=== PATIENT | female | born 1995 | race Caucasian/White ===

== ENCOUNTER 2020-02-10 23:57 | Emergency (ER) | payer OTHER ==
[~2020-02-10] VITALS: Ht 162.6 cm; Wt 68.9 kg
[2020-02-11 01:02] LABS: Urine Bacteria NONE SEEN /hpf (None Seen); Urine Blood 3+ /uL (Negative); Urine Mucus FEW (None Seen); Urine WBC 2300 /hpf (0 - 5); Urine WBC Clumps PRESENT /hpf (None Seen)
[2020-02-11] MEDS ORDERED: cefTRIAXone SOD 1,000 MG VL IM ONE (01:30)
[2020-02-11 01:46] VITALS: BP 136/81
== END 2020-02-11 01:49 | disposition home or self-care (01) ==
LOC: ER 02-11
DX: N39.0 Urinary tract infection, site not specified (principal); R35.0 Frequency of micturition
CPT/HCPCS: 81001; 96372; 99283; J0696

== ENCOUNTER 2024-07-08 16:41 | Inpatient (IN) | payer MEDICAID, OTHER ==
[~2024-07-08] VITALS: Ht 162.6 cm; Wt 88.9 kg
[2024-07-08] MEDS ORDERED: NALBUPHINE HCL 10 MG/1ml INJECTION IV PRN (17:00)
[2024-07-08] MEDS ORDERED: LIDOCAINE 2%HCL (LOCAL ANESTH.) INJ 20ML MDV IJ PRN (17:00)
[2024-07-08] MEDS: LACTATED RINGER'S 1,000 ML IV SCH (17:12)
[2024-07-08 17:26] LABS: Basophils # (auto) 0 10 ^3/uL (0-0.2); Basophils % (auto) 0.3 % (0.0-2.0); Eosinophils # (auto) 0 10 ^3/uL (0-0.8); Eosinophils % (auto) 0.4 % (0.0-7.0); Hemoglobin 13.5 g/dL (12.2-16.2); Lymphocytes # (auto) 1.3 10 ^3/uL (0.4-5.4); Lymphocytes % (auto) 14.7 % (10.0-50.0); Mean Corpuscular Hemoglobin 30.4 pg (28.0-32.0); Mean Corpuscular Hgb Conc. 33.8 g/dL (32.0-36.0); Monocytes # (auto) 0.6 10 ^3/uL (0-1.3); Monocytes % (auto) 7.6 % (0.0-12.0); Neutrophils # (auto) 6.5 10 ^3/uL (1.6-8.6); Nucleated Red Blood Cells % 0.1 %; Platelet Count (auto) 115 10^3/uL (140-450); Red Blood Cells 4.45 10^6/uL (4.0-5.20); Red Cell Distribution Width 13.7 % (11.8-14.3); White Blood Cell 8.5 10^3/uL (4.4-10.8)
[2024-07-08 17:42] LABS: INR 1.03 (0.9-1.15); Partial Thromboplastin Time 27.7 SEC (24.5-34.5); Prothrombin Time 10.9 sec (9.3-11.8)
[2024-07-08 17:44] LABS: Alanine Aminotransferase 16 U/L (7-40); Anion Gap 13 (5-15); Aspartate Aminotransferase 28 U/L (13-40); BUN/Creatinine Ratio 9.3 (10.0-20.0); Calcium 9.6 mg/dL (8.7-10.4); Chloride 106 mmol/L (98-107); Glucose 99 mg/dL (74-106); Sodium 138 mmol/L (136-145); Total Protein 6.5 g/dL (5.7-8.2)
[2024-07-08 17:45] LABS: Bilirubin, Total 0.9 mg/dL (0.2-1.0)
[2024-07-08] MEDS: miSOPROStol 50 MCG per PRE-CUT 1/2 TAB PO PRN (18:05)
[2024-07-08 18:24] LABS: Alkaline Phosphatase 151 U/L (46-116); Blood Urea Nitrogen 7 mg/dL (9-23); Carbon Dioxide 19 mmol/L (20-31); Potassium 3.4 mmol/L (3.5-5.1)
[2024-07-08] MEDS: WITCH HAZEL-GLYCERIN PAD TOP PRN (18:31)
[2024-07-08] MEDS: DERMOPLAST 60ML BOTTLE TOP PRN (18:31)
[2024-07-08] MEDS: PHISODERM TOP SOLN 240ML BTL TOP PRN (18:31)
[2024-07-08 18:38] LABS: Urine Bacteria FEW /hpf (None Seen); Urine Blood Negative /uL (Negative); Urine Clarity Turbid (Clear); Urine Color Yellow (Yellow); Urine Mucus FEW (None Seen); Urine Protein, UAD TRACE (Negative); Urine Specific Gravity 1.023 (1.001-1.035); Urine Squamous Epithelial Cell FEW /hpf (<5); Urine Urobilinogen Normal (Negative); Urine WBC 7 /HPF (0-5)
--- NOTE | 2024-07-08 18:40 | DVHHP2 ---
OB CC & HPI Date Date of Admission: Jul 08, 2024 Patient Identification: : 1 Para: 0 EDC: Jul 14, 2024 EGA: 39.1 Chief Complaints: Reason for admission: induction of labor History of Present Complaints 28y G1Po IUP 39.1 wk, admitted for elective labor induction uncomplicated, EFW by US 7lb 5oz GBS neg Past Medical History Cardiac: No pertinent Hx Pulmonary: No pertinent Hx Central Nervous System: No pertinent Hx GI: No pertinent Hx Hemotology/Oncology: No pertinent Hx Hepatobiliary: No pertinent Hx Psychiatric: No pertinent Hx Musculoskeletal: No pertinent Hx Rheumotologic: No pertinent Hx Infectious Disease: No peritnent Hx ENT: No pertinent Hx Renal/: No pertinent Hx Endocrine: No pertinent Hx Dermatology: No pertinent Hx Past Surgical History: No pertinent Hx OB History OB History Care: Good Care Ultrasounds: Normal mid trimester US Obstetrical Complications: None Medical Complications: None Allergies: Coded Allergies: NO KNOWN ALLERGIES (Unverified , 07/08/24) Current Medications Current Medications Medications (Trade) Dose Ordered Sig/Davin Route PRN Reason Start Time Stop Time Status Last Admin Lactated Ringer's 1,000 ml @ 125 mls/hr Q8H IV 07/08/24 17:00 07/08/24 17:12 Nalbuphine HCl (Nubain) 10 mg Q4HP PRN IV MODERATE PAIN (4-6 PAIN SCALE) 07/08/24 17:00 Witch Vianca (Tucks) 1 pad PRN PRN TOP PERINEAL AREA DISCOMFORT 07/08/24 17:00 07/08/24 18:31 Sodium Lauryl Sulfate (Phisoderm) 240 ml PRN PRN TOP PERINEAL AREA DISCOMFORT 07/08/24 17:00 07/08/24 18:31 Benzocaine (Dermoplast) 1 applic PRN PRN TOP PERINEAL AREA DISCOMFORT 07/08/24 17:00 07/08/24 18:31 Lidocaine HCl (Xylocaine) 20 ml ONCE PRN IJ PERINEAL AREA DISCOMFORT 07/08/24 17:00 Ondansetron HCl (Zofran) 4 mg Q4HPRN PRN IV NAUSEA / VOMITING 07/08/24 17:00 Misoprostol (Cytotec) 50 mcg Q4HPRN PRN PO CERVICAL RIPENING 07/08/24 17:30 07/08/24 18:05 Family & Social History Family/Social History Blood Type: A+ Rubella: immune RPR/VDRL: Negative GBS Status: Negative HBsAG: Negative Review of Systems Constitutional: No symptom reported Ears, Nose, & Throat: No symptom reported Eyes: No symptom reported Pulmonary/Respiratory: No symptom reported Cardiovascular: No symptom reported Gastrointestinal: No symptom reported Genitourinary: No symptom reported Musculoskeletal: No symptom reported Skin: No symptom reported Psychiatric: No symptom reported Endocrine: No symptom reported Hemotologic/Lymphatic: No symptom reported OB Admission Exam Physical Exam HEENT: NCAT Heart: Rhythm Normal Lungs: Clear Abdomen: Gravid Extremities: Normal Reflexes: Normal Pelvic Exam: RN exam : Ft/50%/0 VTX Heart Rate: 130's Accelerations: Accelerations Present Decelerations: No Decelerations Short Term Variability: Present Jail Variability: Average (6-25) Contractions on Admission: >10 Minutes Apart Intensity: Mild OB Plan Plan Admitting Diagnosis: Term IUP 39.1 wkee, elective induction of labor Plan: Induction Induction Methd: Misoprostol protocol Other Plan: Informed consent obtained Cytotec per protocol R/B/A of induction of labor discussed, Visit Coding OBGYN Date of Service: Jul 08, 2024 Billing Provider: SHARLA LAFLEUR DO MATERIAL CONTROL CLERK Common Visit Codes: [id number] OBS CARE (HIGH) SHARLA LAFLEUR DO Jul 08, 2024 18:40
[2024-07-08 18:53] LABS: Amphetamine Screen, Urine Neg (NEGATIVE); Barbiturate Scree,Urine Neg (NEGATIVE); Opiate Scree,Urine Neg (NEGATIVE); Phencyclidine Screen, Urine Neg (NEGATIVE)
[2024-07-08 18:54] LABS: Benzodiazephine Screen, Urine Neg (NEGATIVE); Cannabinoid Screen, Urine Neg (NEGATIVE); Cocaine Screen, Urine Neg (NEGATIVE)
[2024-07-08] MEDS ORDERED: ePHEDrine SULFATE 50 MG/ML AMP IV ONE (21:15)
[2024-07-08] MEDS ORDERED: LACTATED RINGER'S 1,000 ML IV ONE (21:15)
[2024-07-08] MEDS: NALOXONE HCL 0.4 MG/ML VIAL IV ONE (21:15)
[2024-07-08] MEDS: ROPIVACAINE HCL 200 ML ONE (21:33)
[2024-07-08] MEDS: FAMOTIDINE (10MG/ML) 2ML VL IV PRN (23:13)
--- NOTE | 2024-07-09 03:32 | LDN2 ---
Labor and Delivery Note Date 07/09/24 Age 28 1 Para 1 EGA 39.2 Diagnosis Induction of labor Term , delivered Category II FHR in 2nd stage of labor s/p Kiwi Vacuum delivery Vaginal Delivery: VTX Vacuum Assisted: Yes Placenta: Spontaneous Sex: Female Weight 7lb 1oz Apgars 8/9 Amniotic Fluid: Clear Anesthesia Epidural Episiotomy: No Repaired with 2nd deg perineal lac repaired w/ 3-0 Vicryl EBL 75 mL Labs Blood Bank 07/08/24 17:05: Blood Type A POSITIVE Complications None Comments/Significant Med Jairon Prolonged FHR decels in late 2nd stage labor mostly while pushing Verbally consented for Vacuum delivery Applied Kiwi Vac at +3 station, fetus OA. No pop offs Two gentle pulls with contraction and pushing efforts. mostly guided head while patient pushed head out No trauma or head markings from vacuum Baby doing well. 2nd deg perineal lac repaired in layers Mother doing well. Visit Coding OBGYN Date of Service: Jul 09, 2024 Billing Provider: SHARLA LAFLEUR DO ENGINEERING RECRUITER Common Visit Codes: [id number] INP/OBS CARE(HIGH) ENGINEERING RECRUITER Procedure Codes: [id number] OB CARE,VAG DELIVERY SHARLA LAFLEUR DO Jul 09, 2024 03:32
[2024-07-09] MEDS: LACT. RINGERS/OXYTOCIN 20UNITS 500 ML IV ONE ×2 (04:27→04:28)
[2024-07-09] MEDS: ONDANSETRON HCL 4 MG/2 ML VIAL IV PRN (05:07)
[2024-07-09 07:03] VITALS: BP 120/60; PULSE 70; RESP 15; TEMP 98.7; O2SAT 97
[2024-07-09] MEDS: ACETAMINOPHEN 325 MG TAB PO PRN (07:16)
[2024-07-09] MEDS: IBUPROFEN 600 MG TAB PO PRN (10:54)
[2024-07-09 11:00] VITALS: BP 129/67; PULSE 88; RESP 15; TEMP 98.4; O2SAT 99
[2024-07-09 15:00] VITALS: BP 114/69; PULSE 91; RESP 16; TEMP 97.9; O2SAT 98
[2024-07-09] MEDS: DOCUSATE SOD 100 MG CAP PO ONE ×2 (15:38→15:40)
[2024-07-09] MEDS: DOCUSATE SOD 100 MG CAP PO SCH (15:39)
[2024-07-09 18:30] VITALS: BP 119/70; PULSE 73; RESP 16; TEMP 97.6; O2SAT 98
[2024-07-09 22:36] VITALS: BP 124/66; PULSE 73; RESP 16; TEMP 98.1; O2SAT 98
[2024-07-09] MEDS ORDERED: IBU600T PO (22:51)
[2024-07-09] MEDS ORDERED: DOCU-265 PO (22:51)
[2024-07-09] MEDS ORDERED: PREN-96 PO (22:53)
--- NOTE | 2024-07-10 01:08 | DVHPN2 ---
Progress Note Date Seen: Jul 10, 2024 Subjective S: bleeding is less, eating food without issues, denies lightheaded/dizziness, pain well controlled with oral medications, no concerns with urinating, passing flatus, no BM yet, ambulating well, vital signs Vital Sign Date Time Temp Pulse Resp B/P (MAP) Pulse Ox O2 Delivery O2 Flow Rate FiO2 07/09/24 22:36 98.1 73 16 124/66 (85) 98 98.1 07/09/24 18:30 Room Air Total Intake and Output 07/09/24 07/09/24 07/10/24 15:00 23:00 07:00 Output Total 1100 ml Balance -1100 ml medications Current Medications Medications Dose Ordered Sig/Davin Route Start Time Stop Time Status Last Admin Dose Admin Lactated Ringer's 1,000 ml @ 125 mls/hr Q8H IV 07/08/24 17:00 07/08/24 21:19 125 MLS/HR Nalbuphine HCl 10 mg Q4HP PRN IV 07/08/24 17:00 Cancel Witch Vianca 1 pad PRN PRN TOP 07/08/24 17:00 07/08/24 18:31 1 PAD Sodium Lauryl Sulfate 240 ml PRN PRN TOP 07/08/24 17:00 07/08/24 18:31 240 ML Benzocaine 1 applic PRN PRN TOP 07/08/24 17:00 07/08/24 18:31 1 APPLIC Lidocaine HCl 20 ml ONCE PRN IJ 07/08/24 17:00 Cancel Ondansetron HCl 4 mg Q4HPRN PRN IV 07/08/24 17:00 07/09/24 05:07 4 MG Famotidine 20 mg ONCE PRN IV 07/08/24 22:45 07/08/24 23:13 20 MG Ibuprofen 600 mg Q6HP PRN PO 07/09/24 04:45 07/09/24 18:54 600 MG Acetaminophen 650 mg Q4HP PRN PO 07/09/24 04:45 07/09/24 22:42 650 MG Docusate Sodium 200 mg HS PO 07/09/24 22:00 07/09/24 15:39 200 MG laboratory and microbiology Laboratory Tests 07/08/24 17:05 Test 07/08/24 17:05 Range/Units Serum Glucose 99 74-106 mg/dL Objective O: VSS Chest: heart sounds normal and lung sounds clear bilaterally Abd: soft, non-tender, fundus at U/firm/midline, active bowel sounds, no rebound or guarding Perineum: sutures intact, edges well approximated, no erythema/edema noted Ext: Non-tender, No edema, 2+ BLE DTRs Lochia: minimal See lab results Problems(with codes): (1) Second degree perineal laceration during delivery (2) Precipitous drop in hematocrit (3) Vacuum-assisted vaginal delivery Assessment/Plan A: 28yo now PPD#1 s/p VAVD Rh+ Rubella Immune P: D/C home today Rx sent to pharmacy Use sitz bath BID precautions and preeclampsia warning signs reviewed F/U with [facility] office in 2 weeks Plan discussed with: Patient, Spouse Visit Coding OBGYN Date of Service: Jul 10, 2024 Billing Provider: KRISTINA SIERRA CNM WELDING MACHINE OPERATOR ELECTRON BEAM Common Visit Codes: [id number] INP/OBS CARE(MOD) KRISTINA SIERRA CNM Jul 10, 2024 01:08
--- NOTE | 2024-07-10 01:08 | DVHDS2 ---
Obstetrics Discharge Summary Obstetrics Discharge Summary Date of Admission: Jul 08, 2024 Date of Discharge: Jul 10, 2024 Reason For Admission: Induction of Labor (elective) Procedures: NST Intrapartum Procedures: Spontaneous vaginal deliv Procedures: Hct/date: (07/10/24), Hgb/date: (07/10/24) Operative Complicat: Laceration (second degree 2Perineal) Discharge Diagnosis: Term -Delivered Discharge Information: Activity (as tolerated, no heavy lifting and nothing in the vagina for 6 weeks), Diet (Routine), Medications (Rx sent), Instructions (Routine), Discharge to (Home), Accompanied by (partner), Discarge date (07/10/24) Visit Coding OBGYN Date of Service: Jul 10, 2024 Billing Provider: KRISTINA SIERRA CNM REGIONAL SERVICE MANAGER Common Visit Codes: [id number]/OBS DISCH DAY <30MIN KRISTINA SIERRA CNM Jul 10, 2024 01:08
[2024-07-10 02:40] VITALS: BP 113/55; PULSE 74; RESP 16; TEMP 98.1; O2SAT 98
[2024-07-10 07:15] VITALS: BP 121/87; PULSE 97; RESP 16; TEMP 98.4; O2SAT 98
[2024-07-10 08:07] LABS: RPR Non Reactive (Non Reactive)
[2024-07-10 08:52] LABS: Basophils # (auto) 0 10 ^3/uL (0-0.2); Basophils % (auto) 0.3 % (0.0-2.0); Eosinophils # (auto) 0 10 ^3/uL (0-0.8); Eosinophils % (auto) 0.3 % (0.0-7.0); Hematocrit 34.5 % (36.0-46.0); Hemoglobin 11.8 g/dL (12.2-16.2); Lymphocytes # (auto) 1.5 10 ^3/uL (0.4-5.4); Lymphocytes % (auto) 24.9 % (10.0-50.0); Mean Corpuscular Hemoglobin 31.3 pg (28.0-32.0); Mean Corpuscular Hgb Conc. 34.3 g/dL (32.0-36.0); Mean Corpuscular Volume 91.3 fL (80.0-100.0); Monocytes # (auto) 0.8 10 ^3/uL (0-1.3); Monocytes % (auto) 12.9 % (0.0-12.0); Neutrophils # (auto) 3.7 10 ^3/uL (1.6-8.6); Neutrophils % (auto) 61.6 % (37.0-80.0); Nucleated Red Blood Cells % 0.1 %; Platelet Count (auto) 106 10^3/uL (140-450); Red Blood Cells 3.78 10^6/uL (4.0-5.20); Red Cell Distribution Width 13.8 % (11.8-14.3); White Blood Cell 6.1 10^3/uL (4.4-10.8)
== END 2024-07-10 09:40 | disposition home or self-care (01) | DRG 560 ==
LOC: LDRP 16:41
PROVIDERS: ADMIT Obstetrics & Gynecology; ATTEND Obstetrics & Gynecology
PROC: 10D07Z6 Extraction of Products of Conception, Vacuum, Via Natural or Artificial Opening (ICD-10-PCS; principal; 2024-07-09)
PROC: 0KQM0ZZ Repair Perineum Muscle, Open Approach (ICD-10-PCS; 2024-07-09)
PROC: 3E0R3BZ Introduction of Anesthetic Agent into Spinal Canal, Percutaneous Approach (ICD-10-PCS; 2024-07-09)
PROC: 00HU33Z Insertion of Infusion Device into Spinal Canal, Percutaneous Approach (ICD-10-PCS; 2024-07-09)
DX: O70.1 Second degree perineal laceration during delivery (principal); Z37.0 Single live birth; R71.0 Precipitous drop in hematocrit; Z3A.39 39 weeks gestation of pregnancy; Z79.899 Other long term (current) drug therapy; Z79.1 Long term (current) use of non-steroidal anti-inflammatories (NSAID)
CPT/HCPCS: 36415; 59025; 59409; 62282; 80053; 80307; 81001; 81002; 85025; 85610; 85730; 86592; 86780; 86803; 86850; 86900; 86901; 94760; 94762; 96360; 96361; 96365; 96366; 96374; 96375; G0378; J2405; J2590; J3490